=== PATIENT | female | born 1945 | race Caucasian/White ===

== ENCOUNTER 2017-08-20 06:58 | Day surgery (SDC) | payer MEDICARE ==
[~2017-08-20] VITALS: Ht 152.4 cm; Wt 77.1 kg
[~2017-08-20 06:58] MED LIST: Coreg12.5 MG PO; FURO20 PO; HYDCHL25 PO; LOSARTAN POTASS50 MG PO; LOVA40 PO; METO100ER PO; METO50ER PO; Multivitamin1 EAC1 PO; POTA8 PO; Prilosec Otc20 MG PO
[2017-09-21] MEDS ORDERED: Diltiazem ER240 M1 PO (02:05)
[2017-09-21] MEDS ORDERED: POTCHL20ER PO (03:56)
[2018-05-06] MEDS ORDERED: VERA240ER (14:06)
[2018-05-06] MEDS ORDERED: XARELTO20 MG (14:06)
[2018-05-06] MEDS ORDERED: POTA8 (14:07)
[2018-05-06] MEDS ORDERED: METO100ER (14:07)
[2018-05-06] MEDS ORDERED: B-121000 MC2 (14:07)
[2018-05-06] MEDS ORDERED: Hair, Skin & N1 EACH (14:07)
[2018-05-06] MEDS ORDERED: Mobic15 MG (14:08)
== END 2017-08-20 23:00 | disposition home or self-care (01) ==
LOC: ORSCMMR 06:58
PROVIDERS: Internal Medicine Gastroenterology
PROC: 0DB48ZX Excision of Esophagogastric Junction, Via Natural or Artificial Opening Endoscopic, Diagnostic (ICD-10-PCS; principal; 2017-08-20 08:00)
PROC: 0DB58ZX Excision of Esophagus, Via Natural or Artificial Opening Endoscopic, Diagnostic (ICD-10-PCS; principal; 2017-08-20 08:00)
PROC: 0D758ZZ Dilation of Esophagus, Via Natural or Artificial Opening Endoscopic (ICD-10-PCS; principal; 2017-08-20 08:00)
PROC: 0DB68ZX Excision of Stomach, Via Natural or Artificial Opening Endoscopic, Diagnostic (ICD-10-PCS; principal; 2017-08-20 08:00)
PROC: 0DBH8ZX Excision of Cecum, Via Natural or Artificial Opening Endoscopic, Diagnostic (ICD-10-PCS; principal; 2017-08-20 08:00)
PROC: 0DBK8ZX Excision of Ascending Colon, Via Natural or Artificial Opening Endoscopic, Diagnostic (ICD-10-PCS; principal; 2017-08-20 08:00)
DX: R13.14 Dysphagia, pharyngoesophageal phase (principal); K21.9 Gastro-esophageal reflux disease without esophagitis; K29.70 Gastritis, unspecified, without bleeding; Z12.11 Encounter for screening for malignant neoplasm of colon; D12.0 Benign neoplasm of cecum; D12.2 Benign neoplasm of ascending colon; K57.30 Diverticulosis of large intestine without perforation or abscess without bleeding; Z86.010 Personal history of colon polyps; Z80.0 Family history of malignant neoplasm of digestive organs; G47.33 Obstructive sleep apnea (adult) (pediatric); Z79.899 Other long term (current) drug therapy
CPT/HCPCS: 88305; 88341; 88342; C1726; J2250; J3010; J7120

== ENCOUNTER → 2019-10-14 | Outpatient (CLI) | payer MEDICARE ==
[~2019-10-14] MED LIST changes: +B-121000 MC2; +Diltiazem ER240 M1 PO; +Hair, Skin & N1 EACH; +METO100ER; +Mobic15 MG; +POTA8; +POTCHL20ER PO; +VERA240ER; +XARELTO20 MG
[2019-10-15 12:28] LABS: Stool Occult Bld Immuno 1 Negative (NEGATIVE)
== END | disposition home or self-care (01) ==
LOC: LAB EV 09:00
PROVIDERS: Internal Medicine Gastroenterology
DX: R19.4 Change in bowel habit (principal)
CPT/HCPCS: G0328

== ENCOUNTER → 2019-11-04 | Outpatient (CLI) | payer MEDICARE | END | disposition home or self-care (01) | LOC: LAB EV 09:35 | DX: R19.4 Change in bowel habit (principal) | CPT/HCPCS: 83993 ==

== ENCOUNTER → 2019-11-10 | Outpatient (CLI) | payer MEDICARE | END | disposition home or self-care (01) | LOC: LAB SRC 09:25 → LAB SHORT 09:25 → LAB FUT 10-06 16:20 | DX: R19.4 Change in bowel habit (principal) | CPT/HCPCS: 83993 ==

== ENCOUNTER 2020-07-26 12:44 | Day surgery (SDC) | payer MEDICARE ==
[~2020-07-26] VITALS: Ht 152.4 cm; Wt 77.8 kg
[~2020-07-26 12:44] MED LIST changes: +CARV25 PO; +FERSU300 PO; -METO100ER; +OMEP20ER PO; +VERA240ER PO; +XARELTO20 MG PO
[2020-07-26] MEDS ORDERED: DOCUZEN 8.6-501 EACH PO (13:20)
--- NOTE | 2020-07-26 14:32 | NUR ---
07/26/20 1432 Bambi Burris BUPIVACAINE 0.5% 30ML MIXED WITH EPI 0.15MG TO CONSTITUTE BUPIVACAINE 0.5% W/EPI 1:200,[address] A[address]BE[address] WHARTON INJECTED 30 ML DURING THE CASE
--- NOTE | 2020-07-26 15:15 | NUR ---
07/26/20 1515 GIGI PALAFOX PT TO STEP DOWN. PT REPORTS "DEEP ACHE" BUT CONTINUES TO DENY NEED FOR NARCOTIC PAIN MEDICATION. SHE REPORTS IT IS TOLERABLE. DENIES NAUSEA AND IS TOLERATING SIPS OF JUICE AND CRACKERS. IV PATENT. VSS ON ROOM AIR. PT IS ONE PERSON ASSIST TO RECLINER AND BOOT IN PLACE. DRESSING IS C/D/I
== END 2020-07-26 16:00 | disposition home or self-care (01) ==
LOC: ORSCSDS 12:44
PROVIDERS: Podiatrist Foot & Ankle Surgery
PROC: 0YPB0YZ Removal of Other Device from Left Lower Extremity, Open Approach (ICD-10-PCS; principal; 2020-07-26 14:00)
DX: M79.672 Pain in left foot (principal); T84.84XA Pain due to internal orthopedic prosthetic devices, implants and grafts, initial encounter; M19.072 Primary osteoarthritis, left ankle and foot; I48.91 Unspecified atrial fibrillation; Z79.01 Long term (current) use of anticoagulants; Z79.899 Other long term (current) drug therapy; E78.5 Hyperlipidemia, unspecified
CPT/HCPCS: A9270; J0171; J1100; J2405; J2704; J3010; J3370; J7120

== ENCOUNTER 2020-09-02 18:30 | Emergency (ER) | payer MEDICARE ==
[~2020-09-02] VITALS: Ht 152.4 cm; Wt 78.5 kg
[~2020-09-02 18:30] MED LIST changes: +DOCUZEN 8.6-501 EACH PO
== END 2020-09-02 20:50 | disposition home or self-care (01) ==
LOC: ER 18:30
DX: S06.0X0A Concussion without loss of consciousness, initial encounter (principal); M54.2 Cervicalgia; Z88.2 Allergy status to sulfonamides; Z88.0 Allergy status to penicillin; Z88.8 Allergy status to other drugs, medicaments and biological substances; Z79.01 Long term (current) use of anticoagulants; Z79.899 Other long term (current) drug therapy; W01.198A Fall on same level from slipping, tripping and stumbling with subsequent striking against other object, initial encounter
CPT/HCPCS: 70450; 72125; 99283-25

== ENCOUNTER 2022-04-26 07:59 | Day surgery (SDC) | payer MEDICARE | END 2022-04-26 10:12 | disposition home or self-care (01) | DX: R13.10 Dysphagia, unspecified (principal); K59.09 Other constipation; K21.9 Gastro-esophageal reflux disease without esophagitis; I48.91 Unspecified atrial fibrillation; I10 Essential (primary) hypertension; G47.33 Obstructive sleep apnea (adult) (pediatric); I47.9 Paroxysmal tachycardia, unspecified; J45.909 Unspecified asthma, uncomplicated; Z86.73 Personal history of transient ischemic attack (TIA), and cerebral infarction without residual deficits; E66.9 Obesity, unspecified; Z68.31 Body mass index [BMI] 31.0-31.9, adult; Z79.899 Other long term (current) drug therapy; Z79.01 Long term (current) use of anticoagulants ==

== ENCOUNTER 2023-05-22 07:33 | Day surgery (SDC) | payer MEDICARE ==
[2023-05-22] VITALS (18 sets, daily range): BP systolic 93–188; BP diastolic 59–81
[~2023-05-22] VITALS: Ht 152.4 cm; Wt 76.8 kg
[~2023-05-22 07:33] MED LIST changes: +AMIODARONE HCL200 MG PO; +IBUP800 PO; +Ketoconazole120 ML TOP; +Verapamil ER100 MG PO
[2023-05-22] MEDS ORDERED: EUTHYROX50 MCG PO (08:19)
--- NOTE | 2023-05-22 08:55 | NUR ---
Ambulatory in Day Surgery History, Chart, Medications and Allergies reviewed before start of procedure. Pre-Op teaching done. Pt verbalizes understanding.
--- NOTE | 2023-05-22 14:56 | NUR ---
PT ARRIVED TO THE ROOM AT 1532. PT DENIES PAIN. SHE IS ABLE TO MOVE ALL EXTREMITIES. SHE IS ALERT AND ORIENTED. SPINAL SITE WNL. PT STILL HAS DECREASED SENSATION AND MOVEMENT TO BLE. AQUACEL TO L KNEE IS C/D/I. JUANIS WRAP AND POLAR PACK IN PLACE. CALL LIGHT WITHIN REACH, PT EDUCATED TO USE.
--- NOTE | 2023-05-22 18:43 | NUR ---
SHIFT SUMMARY PT IS POD#0 FROM L TKA WITH DR. PADILLA. PT HAS TOLERATED PO, PAIN MANAGED WITH TYLENOL AND TORADOL, SHE HAS VOIDED AND WORKED WITH THERAPY. PT IS A 1 ASSIST WHEN OOB. PT REPORTED SOME DIZZINESS DURING DINNER WHEN RESTING WITH HER FEET ON THE FLOOR, PT REPORTS DIZZINESS RESOLVED WITHOUT INTERVENTION. PT IS WILSON SINCE SHE IS TOLERATING PO. PT MOVING ALL EXTREMITIES WELL. VSS. PT IS NOW ALERT AND RESTING IN BED, CALL LIGHT WITHIN REACH.
--- NOTE | 2023-05-22 19:09 | NUR ---
BEDSIDE REPORT GIVEN TO NOC RN; PT PARTICIPATED WITH BEDSIDE REPORT. PT ALERT, ORIENTED AND RESTING IN BED, CALL LIGHT WITHIN REACH.
[2023-05-23 04:41] VITALS: BP 153/71
--- NOTE | 2023-05-23 04:56 | NUR ---
SHIFT SUMMARY POD 1 L TKA PT SLEPT T/O NIGHT. PAIN MANGED PER EMAR. DRESSING TO L KNEE C/D/I. TOLERTING PO INTAKE. UP TOT THE BATHROOM, VOIDING. DENIES N/T. NO OTHER CONCERNS AT THIS TIME. CALL LIGHT WITHIN REACH
[2023-05-23 05:48] LABS: BASOPHILS ABSOLUTE AUTO 0.06 K/mm3 (0.00-0.23); BASOPHILS PERCENT AUTO 1 % (0-2); Bun/Creatinine Ratio 21.2 (12.0-20.0); Calcium, Blood 8.2 mg/dL (8.5-10.1); Creatinine, Blood 0.85 mg/dL (0.40-1.00); EOSINOPHILS ABSOLUTE AUTO 0.14 K/mm3 (0.00-0.68); EOSINOPHILS PERCENT AUTO 2 % (0-6); Hematocrit 32.1 % (33.0-51.0); Hemoglobin 10.7 g/dL (11.5-16.0); IMMATURE GRAN ABSOLUTE AUTO 0.08 K/mm3 (0.00-0.10); IMMATURE GRAN PERCENT AUTO 1 % (0-1); LYMPHOCYTES ABSOLUTE AUTO 1.82 K/mm3 (0.84-5.20); LYMPHOCYTES PERCENT AUTO 20 % (21-46); MONOCYTES ABSOLUTE AUTO 0.73 K/mm3 (0.16-1.47); MONOCYTES PERCENT AUTO 8 % (4-13); Mean Corpuscular HGB 32.4 pg (26.0-34.0); Mean Corpuscular HGB Conc 33.3 g/dL (31.5-36.5); Mean Corpuscular Volume 97 fL (80-100); NEUTROPHILS ABSOLUTE AUTO 6.19 K/mm3 (1.96-9.15); NEUTROPHILS PERCENT AUTO 69 % (41-73); Platelet Count 201 K/mm3 (150-400); Potassium, Blood 3.5 mmol/L (3.5-5.5); RDW Standard Deviation 46.5 fL (35.1-46.3); White Blood Cell Count 9.02 K/mm3 (4.00-11.30)
[2023-05-23 07:11] VITALS: BP 164/74
[2023-05-23] MEDS ORDERED: ASPI81CH PO (07:59)
[2023-05-23] MEDS ORDERED: TRAM50 PO (08:03)
--- NOTE | 2023-05-23 11:20 | NUR ---
Pt is awake and sitting in a recliner. Pt. is unsettled by having some light headedness during her PT. Listen with empathy and a calming presence. Facilitate a life review and in the process rapport is established. Pt.displays evidence of engagement, awareness and trust, Prayed with Pt. Pt. verbalized gratitude for the spiritual care visit.
[2023-05-23] MEDS ORDERED: Acetaminophen650 M1 PO (11:33)
[2023-05-23 15:08] VITALS: BP 160/64
--- NOTE | 2023-05-23 15:16 | NUR ---
DISCHARGE NOTE: PATIENT WAS EDUCATED ON DISCHARGE INSTRUCTIONS. SHE VERBALIZED UNDERSTANDING OF INSTRUCTIONS AND HAD NO FURTHER QUESTIONS AT THIS TIME. HARD PERSCRIPTION WAS PLACED IN DISCHARGE INSTRUCTIONS FOLDER WITH EXTRA AQUACELS. PAIN IS MANAGED WITH PO PAIN MEDS. HER LEFT KNEE HAS AN AQUACEL THAT IS C/D/I. DENIES NUMBNESS OR TINGLING IN ALL EXTREMITIES. SHE IS A SBA WITH FWW AND GAIT BELT. PATIENT IS DRESSED AND HAS PERSONAL ITEMS IN THE ROOM GATHERED. PATIENT IS SITTING IN HER RECLINER WAITING FOR HER TO COME PICK HER UP TO TAKE HER HOME. IV WAS TAKEN OUT AND WNL.
--- NOTE | 2023-05-23 16:00 | NUR ---
PATIENT WAS WHEELCHAIRED OUT TO HUSBANDS CAR TO BE TAKEN HOME.
== END 2023-05-23 16:01 | disposition home or self-care (01) ==
LOC: ORSCMMR 07:33 → ORD 09:15 → SURS 14:21 → ORSCMMR 05-23 16:01
PROVIDERS: Orthopaedic Surgery
PROC: 0SRD0JA Replacement of Left Knee Joint with Synthetic Substitute, Uncemented, Open Approach (ICD-10-PCS; principal; 2023-05-22 11:30)
DX: M17.12 Unilateral primary osteoarthritis, left knee (principal); I10 Essential (primary) hypertension; I48.91 Unspecified atrial fibrillation; Z79.01 Long term (current) use of anticoagulants; E78.5 Hyperlipidemia, unspecified; Z86.73 Personal history of transient ischemic attack (TIA), and cerebral infarction without residual deficits; Z79.899 Other long term (current) drug therapy; G47.33 Obstructive sleep apnea (adult) (pediatric)
CPT/HCPCS: 36415; 73560-LT; 80048; 85025; 97110; 97116; 97161; 97530; A9270; C1713; C1776; J0171; J0690; J0735; J1885; J2795; J7120

== ENCOUNTER 2024-02-18 11:52 | Emergency (ER) | payer MEDICARE ==
[~2024-02-18] VITALS: Ht 152.4 cm; Wt 72.6 kg
[~2024-02-18 11:52] MED LIST changes: +ASPI81CH PO; +Acetaminophen650 M1 PO; +EUTHYROX50 MCG PO; +TRAM50 PO
[2024-02-18 13:05] LABS: BASOPHILS ABSOLUTE AUTO 0.08 K/mm3 (0.00-0.23); BASOPHILS PERCENT AUTO 1 % (0-2); EOSINOPHILS PERCENT AUTO 3 % (0-6); Hematocrit 39.2 % (33.0-51.0); Hemoglobin 13.1 g/dL (11.5-16.0); IMMATURE GRAN ABSOLUTE AUTO 0.02 K/mm3 (0.00-0.10); IMMATURE GRAN PERCENT AUTO 0 % (0-1); LYMPHOCYTES ABSOLUTE AUTO 2.44 K/mm3 (0.84-5.20); LYMPHOCYTES PERCENT AUTO 31 % (21-46); MONOCYTES ABSOLUTE AUTO 0.68 K/mm3 (0.16-1.47); MONOCYTES PERCENT AUTO 9 % (4-13); Mean Corpuscular HGB 32.2 pg (26.0-34.0); Mean Corpuscular HGB Conc 33.4 g/dL (31.5-36.5); Mean Corpuscular Volume 96 fL (80-100); Mean Platelet Volume 9.5 fL (9.1-12.4); NEUTROPHILS ABSOLUTE AUTO 4.57 K/mm3 (1.96-9.15); NEUTROPHILS PERCENT AUTO 57 % (41-73); Platelet Count 338 K/mm3 (150-400); RDW Coefficient Variation 13.4 % (11.7-14.2); RDW Standard Deviation 47.7 fL (35.1-46.3); Red Blood Cell Count 4.07 M/mm3 (3.80-5.20); White Blood Cell Count 7.99 K/mm3 (4.00-11.30)
[2024-02-18 13:28] LABS: Bun/Creatinine Ratio 13.1 (12.0-20.0); Calcium, Blood 9.3 mg/dL (8.5-10.1); Creatinine, Blood 1.07 mg/dL (0.40-1.00); Potassium, Blood 3.2 mmol/L (3.5-5.5)
[2024-02-18] MEDS ORDERED: Lactated Ringer's 1,000 ML IV ONE (17:55)
[2024-02-18 18:34] LABS: Magnesium, Blood 2.4 mg/dL (1.6-2.4)
[2024-02-18] MEDS ORDERED: Ketorolac Tromethamine 15mg Vial IV ONE (19:35)
[2024-02-18] MEDS ORDERED: Labetalol HCL 5 MG/ML 4ML Injection (Single Dose) IV ONE (19:35)
[2024-02-18 20:39] LABS: Source, Urine Clean Catch
[2024-02-18 20:43] LABS: Bilirubin, Urine Neg (Neg); Blood, Urine Neg (Neg); Glucose Qualitative, Urine 4+ (Neg); Ketones, Urine 3+ (Neg); Leukocyte Esterase, Urine 1+ (Neg); Nitrite, Urine Neg (Neg); Protein, Urine Neg (Neg); Urobilinogen, Urine NORM (Normal)
[2024-02-18 20:49] LABS: Appearance, Urine Clear (Clear); Color, Urine Yellow (P-Yellow)
[2024-02-18 20:50] LABS: Bacteria Rare /hpf; Red Blood Cells, Urine Not Seen /hpf (0-2); Squamous Epithelial Cells Few /hpf (Few); White Blood Cells, Urine 0-2 /hpf (0-5)
[2024-02-18] MEDS ORDERED: MIRALAX1714 PO (21:09)
[2024-02-18 21:36] VITALS: BP 167/78
== END 2024-02-18 21:41 | disposition home or self-care (01) ==
LOC: ER 11:52
PROVIDERS: Emergency Medicine; Student in an Organized Health Care Education/Training Program
DX: K59.00 Constipation, unspecified (principal); R91.1 Solitary pulmonary nodule; I16.0 Hypertensive urgency; I10 Essential (primary) hypertension; R10.84 Generalized abdominal pain; Z79.82 Long term (current) use of aspirin; Z79.899 Other long term (current) drug therapy; Z88.0 Allergy status to penicillin; Z88.2 Allergy status to sulfonamides
CPT/HCPCS: 71250; 74018; 74177; 80048; 81001; 83690; 83735; 85025; 96361; 96374-59; 96375; 99284-25; J1885; J7120; Q9967

== ENCOUNTER 2024-11-04 21:12 | Emergency (ER) | payer MEDICARE ==
[~2024-11-04] VITALS: Ht 160 cm; Wt 72.6 kg
[~2024-11-04 21:12] MED LIST changes: +MIRALAX1714 PO
[2024-11-04 22:26] LABS: BASOPHILS ABSOLUTE AUTO 0.07 K/mm3 (0.00-0.23); BASOPHILS PERCENT AUTO 1 % (0-2); EOSINOPHILS ABSOLUTE AUTO 0.21 K/mm3 (0.00-0.68); EOSINOPHILS PERCENT AUTO 2 % (0-6); Hematocrit 37.6 % (33.0-51.0); Hemoglobin 12.3 g/dL (11.5-16.0); IMMATURE GRAN ABSOLUTE AUTO 0.02 K/mm3 (0.00-0.10); IMMATURE GRAN PERCENT AUTO 0 % (0-1); LYMPHOCYTES ABSOLUTE AUTO 2.62 K/mm3 (0.84-5.20); LYMPHOCYTES PERCENT AUTO 30 % (21-46); MONOCYTES ABSOLUTE AUTO 0.78 K/mm3 (0.16-1.47); MONOCYTES PERCENT AUTO 9 % (4-13); Mean Corpuscular HGB 32.6 pg (26.0-34.0); Mean Corpuscular HGB Conc 32.7 g/dL (31.5-36.5); Mean Corpuscular Volume 100 fL (80-100); Mean Platelet Volume 10.1 fL (9.1-12.4); NEUTROPHILS ABSOLUTE AUTO 4.93 K/mm3 (1.96-9.15); NEUTROPHILS PERCENT AUTO 57 % (41-73); Platelet Count 256 K/mm3 (150-400); RDW Coefficient Variation 12.9 % (11.7-14.2); RDW Standard Deviation 47.4 fL (35.1-46.3); Red Blood Cell Count 3.77 M/mm3 (3.80-5.20); White Blood Cell Count 8.63 K/mm3 (4.00-11.30)
[2024-11-04 22:51] LABS: Albumin, Blood 3.8 g/dL (3.4-5.0); Albumin/Globulin Ratio 1.1 (0.8-1.8); Bilirubin, Total 0.3 mg/dL (0.1-1.0); Bun/Creatinine Ratio 12.5 (12.0-20.0); Calcium, Blood 8.3 mg/dL (8.5-10.1); Creatinine, Blood 1.12 mg/dL (0.40-1.00); Globulin, Blood 3.4 g/dL (2.2-4.0); Total Protein, Blood 7.2 g/dL (6.4-8.2)
[2024-11-05 00:19] VITALS: BP 184/87
== END 2024-11-05 00:25 | disposition home or self-care (01) ==
LOC: ER 21:12
PROVIDERS: Student in an Organized Health Care Education/Training Program
DX: I10 Essential (primary) hypertension (principal); I48.91 Unspecified atrial fibrillation; E78.00 Pure hypercholesterolemia, unspecified; Z88.0 Allergy status to penicillin; Z88.2 Allergy status to sulfonamides; Z88.8 Allergy status to other drugs, medicaments and biological substances; Z79.890 Hormone replacement therapy; Z79.899 Other long term (current) drug therapy
CPT/HCPCS: 71046; 80053; 84484; 85025; 93005; 93010; 99284-25

== ENCOUNTER 2024-11-25 19:46 | Inpatient (IN) | payer MEDICARE ==
[~2024-11-25] VITALS: Ht 172.7 cm; Wt 74.1 kg
[2024-11-25 19:58] LABS: BASOPHILS ABSOLUTE AUTO 0.08 K/mm3 (0.00-0.23); BASOPHILS PERCENT AUTO 1 % (0-2); EOSINOPHILS ABSOLUTE AUTO 0.20 K/mm3 (0.00-0.68); EOSINOPHILS PERCENT AUTO 2 % (0-6); Hematocrit 37.2 % (33.0-51.0); Hemoglobin 12.7 g/dL (11.5-16.0); IMMATURE GRAN ABSOLUTE AUTO 0.02 K/mm3 (0.00-0.10); IMMATURE GRAN PERCENT AUTO 0 % (0-1); LYMPHOCYTES ABSOLUTE AUTO 5.59 K/mm3 (0.84-5.20); LYMPHOCYTES PERCENT AUTO 50 % (21-46); MONOCYTES ABSOLUTE AUTO 0.80 K/mm3 (0.16-1.47); MONOCYTES PERCENT AUTO 7 % (4-13); Mean Corpuscular HGB Conc 34.1 g/dL (31.5-36.5); Mean Corpuscular Volume 97 fL (80-100); NEUTROPHILS ABSOLUTE AUTO 4.54 K/mm3 (1.96-9.15); NEUTROPHILS PERCENT AUTO 40 % (41-73); NRBC ABSOLUTE 0.00 K/mm3 (0.00-0.02); NRBC Auto 0.0 /100 WBC (0.0-0.2); Platelet Count 293 K/mm3 (150-400); RDW Coefficient Variation 12.9 % (11.7-14.2); RDW Standard Deviation 45.8 fL (35.1-46.3)
[2024-11-25 20:19] LABS: Ethanol (Alcohol), Blood, Med <3 mg/dL
[2024-11-25 20:20] LABS: Alanine Aminotransfer (ALT/SGP 34 U/L (12-78); Albumin, Blood 3.8 g/dL (3.4-5.0); Albumin/Globulin Ratio 1.1 (0.8-1.8); Anion Gap 8 mmol/L (3-11); Aspartate Aminotrans (AST/SGOT 23 U/L (12-37); Bilirubin, Total 0.3 mg/dL (0.1-1.0); Blood Urea Nitrogen 15 mg/dL (8-24); CO2, Blood 25 mmol/L (21-32); Calcium, Blood 8.5 mg/dL (8.5-10.1); Chloride, Blood 109 mmol/L (98-108); Creatinine, Blood 1.37 mg/dL (0.40-1.00); Globulin, Blood 3.5 g/dL (2.2-4.0); Glucose, Blood 136 mg/dL (70-99); Potassium, Blood 3.4 mmol/L (3.5-5.5); Sodium, Blood 139 mmol/L (136-145); Total Protein, Blood 7.3 g/dL (6.4-8.2)
[2024-11-25 20:47] LABS: Magnesium, Blood 2.1 mg/dL (1.6-2.4); Salicylate <1.7 mg/dL (2.8-20.0)
[2024-11-25 20:55] LABS: D-Dimer, Quantitative <0.19 mg/L FEU (0.00-0.52); Prothrombin Time Results 16.2 Sec (9.7-11.5)
[2024-11-25 21:11] LABS: pH Blood Venous 7.41 (7.34-7.37)
[2024-11-25 21:13] LABS: Phosphorus, Blood 2.8 mg/dL (2.5-4.9)
[2024-11-25 21:14] LABS: Acetaminophen, Random <2.0 ug/mL (10.0-30.0)
[2024-11-25] MEDS ORDERED: Potassium Chl 20MEQ/Water100ML 100 ML IV SCH (22:05)
[2024-11-25] MEDS ORDERED: NS 1,000 ML IV SCH (22:05)
[2024-11-25] MEDS ORDERED: Ondansetron HCl 2 MG / ML 2ML Vial IV PRN (23:30)
[2024-11-26] MEDS ORDERED: JARDIANCE10 MG PO (00:04)
[2024-11-26] MEDS ORDERED: LEVSOD25 PO (00:05)
[2024-11-26] MEDS ORDERED: AMIODARONE HCL100 M3 PO (00:05)
[2024-11-26 00:43] VITALS: BP 186/85
[2024-11-26 04:13] VITALS: BP 164/66
--- NOTE | 2024-11-26 04:40 | NUR ---
SHIFT SUMMARY 78 YR F ADMITTED ON 11/25/24. FULL CODE. PT STATES THAT HER SYMPTOMS ARE GETTING BETTER AND SHE IS ABLE TO SPEAK AFTER NOT BEING ABLE TO FOR SEVERAL HOURS. HER SPEECH IS SOFT AND SHE IS HAVING SOME TROUBLE FINDING HER WORDS. SHE STATES HER RIGHT LEG STILL WILL NOT WORK AND SHE IS NOT ABLE TO WALK. SHE IS A&O X 4 AND IS ABLE TO MAKE HER NEEDS KNOWN. PLAN IS FOR AN MRI IN THE A.M. BED IS IN LOW POSITION WITH ALARM ON FOR SAFETY, AND CALL LIGHT IS IN REACH. SHE HAS A PUREWIK IN PLACE THAT IS WORKING WELL FOR HER.
[2024-11-26 06:03] LABS: BASOPHILS ABSOLUTE AUTO 0.05 K/mm3 (0.00-0.23); BASOPHILS PERCENT AUTO 1 % (0-2); EOSINOPHILS ABSOLUTE AUTO 0.08 K/mm3 (0.00-0.68); EOSINOPHILS PERCENT AUTO 1 % (0-6); Hematocrit 35.5 % (33.0-51.0); Hemoglobin 11.7 g/dL (11.5-16.0); IMMATURE GRAN ABSOLUTE AUTO 0.02 K/mm3 (0.00-0.10); IMMATURE GRAN PERCENT AUTO 0 % (0-1); LYMPHOCYTES ABSOLUTE AUTO 2.26 K/mm3 (0.84-5.20); LYMPHOCYTES PERCENT AUTO 26 % (21-46); MONOCYTES ABSOLUTE AUTO 0.69 K/mm3 (0.16-1.47); MONOCYTES PERCENT AUTO 8 % (4-13); Mean Corpuscular HGB Conc 33.0 g/dL (31.5-36.5); Mean Corpuscular Volume 99 fL (80-100); NEUTROPHILS ABSOLUTE AUTO 5.59 K/mm3 (1.96-9.15); NEUTROPHILS PERCENT AUTO 64 % (41-73); NRBC ABSOLUTE 0.00 K/mm3 (0.00-0.02); NRBC Auto 0.0 /100 WBC (0.0-0.2); Platelet Count 221 K/mm3 (150-400); RDW Coefficient Variation 13.0 % (11.7-14.2); RDW Standard Deviation 47.3 fL (35.1-46.3)
[2024-11-26 06:36] LABS: LDL/HDL RATIO 1.3; Magnesium, Blood 2.4 mg/dL (1.6-2.4); Thyroid Stimulating Hormone 5.180 uIU/mL (0.360-4.800)
[2024-11-26 06:37] LABS: Alanine Aminotransfer (ALT/SGP 29 U/L (12-78); Albumin, Blood 3.4 g/dL (3.4-5.0); Albumin/Globulin Ratio 1.1 (0.8-1.8); Anion Gap 6 mmol/L (3-11); Aspartate Aminotrans (AST/SGOT 20 U/L (12-37); Bilirubin, Total 0.2 mg/dL (0.1-1.0); Blood Urea Nitrogen 14 mg/dL (8-24); CHOL/HDL RATIO 2.6; CO2, Blood 27 mmol/L (21-32); Calcium, Blood 8.3 mg/dL (8.5-10.1); Chloride, Blood 112 mmol/L (98-108); Cholesterol 169 mg/dL (50-200); Creatinine, Blood 1.00 mg/dL (0.40-1.00); Globulin, Blood 3.1 g/dL (2.2-4.0); Glucose, Blood 93 mg/dL (70-99); HDL Cholesterol 65 mg/dL (>39); Low Density Lipoprotein Chol 85 mg/dL (0-110); Potassium, Blood 4.0 mmol/L (3.5-5.5); Sodium, Blood 141 mmol/L (136-145); Total Protein, Blood 6.5 g/dL (6.4-8.2); Triglycerides 93 mg/dL (30-160); Very Low Density Lipoprot Chol 18 mg/dL (6-32)
[2024-11-26 08:14] VITALS: BP 165/77
[2024-11-26 11:31] VITALS: BP 189/83
[2024-11-26 16:22] VITALS: BP 190/98
--- NOTE | 2024-11-26 17:25 | NUR ---
SHIFT SUMMARY PT A&OX4, BEDRIDDEN AT THIS TIME, TOLERATING PO, AND DENIED PAIN. 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 DISCUSSED RESULTS W/ PT AND PT'S FAMILY. PT HYPERTENSIVE, BUT ASYMPTOMATIC, PROVIDER AWARE AND HYPERTENSION PERMISSIVE AT THIS TIME. PT RETAINING URINE THIS SHIFT. THIS RN NOTIFIED PROVIDER. ROWLAND TO BE PLACED IF ONE MORE BLADDER SCAN IS INDICATIVE. PHYSICAL AND OCCUPATIONAL THERAPY ATTEMPTED TO SEE PT, THERAPIES AWAITING BP MANAGEMENT FOR EVAL. CALL LIGHT WITHIN REACH.
[2024-11-26 19:48] VITALS: BP 179/88
[2024-11-27 00:17] VITALS: BP 143/73
[2024-11-27 04:25] VITALS: BP 146/73
--- NOTE | 2024-11-27 05:32 | NUR ---
SHIFT SUMMARY A&Ox4, HYPERTENSIVE, OTHER VSS ON RA. PT REPORTS 01/11 HEADACHE, PRN TYLENOL EFFECTIVE. WEAKNESS AT RUE AND RLE CONTINUE. PRN LASIX GIVEN FOR BLE SWELLING. MONITORED FOR URINARY RETENTION, 600 ML OUTPUT OVERNIGHT.
[2024-11-27 07:10] VITALS: BP 149/80
--- NOTE | 2024-11-27 09:00 | NUR ---
pt laying in bed, awake a/ox4, pleasant and cooperative with care, follows commands well, denies pain this am, states her speech is much improved from yesterday, is completing full sentances, right arm is weak can lift arm but fine motors skills are weak, right leg is no flacid, but is unable to push down or up, lungs are clear and patent, btx4, abd flat soft nontender, voids via purwick at this time, lungs are clear t/o, reps even and unlabored, no cough noted, hrr, no edema noted, ppp+1, cap refill<3 sec, vs stable, afebrile, piv to lac site is clear and patent, btx4, abd flat soft notnender, skin c/w/d, lottie, call light in reach.
[2024-11-27 11:16] VITALS: BP 160/73
--- NOTE | 2024-11-27 13:30 | NUR ---
Upon receiving a referral for spiritual care, I visited the patient. She is tearful as she explains about her medical events, the initial effects and the improvements she has made so far. She has concerns about getting the rehab that she needs due to financail restraints their fixed income and low insurance coverage. She also talks about her family and her strong Anglican maranda. She attends [employer] and appreciates the prayers, visits and support. I lsitened empathically, reinforced helpful attitudes and practices and provided a calming presence and prayer. The patient responded well and showed signs of greater peace and hope for her future. I will continue to remain available to patient and family.
[2024-11-27 15:43] VITALS: BP 161/88
--- NOTE | 2024-11-27 18:31 | NUR ---
pt had an uneventful day, up to chair with therapy and to bsc onced with this nurse, had a bm, complained of a h/a this evening, tylenol given. states headach is better. no further changes or needs, call light in reach.
[2024-11-27 20:10] VITALS: BP 135/69
[2024-11-28] VITALS (7 sets, daily range): BP systolic 134–166; BP diastolic 63–96
--- NOTE | 2024-11-28 05:56 | NUR ---
SHIFT SUMMARY A&Ox4, VSS ON RA. Q4 NEURO CHECKS COMPLETED. PT REPORTS INCREASED MOBILITY AT R SIDE. GENTLE DORSI/VENTRAL FLEXION PRESENT AT R FOOT. RLE CAN OVERCOME GRAVITY. RUE RANGE OF MOTION INCREASED.
--- NOTE | 2024-11-28 18:25 | NUR ---
PT PLEASNT TODAY. DID NOT SEE FAMILY IN TODAY. PT AMBULATED 1 MIN ASST TO BATHROOM AND ALSO TOOK SHOWER TODAY. FOOD DROP NOTED WHILE WALKING. BARELY ABLE TO AVIONICS SAFETY INSPECTOR FOOT TO WALK, PT IS DETERMINEED TO CONTINUE TO WALK AND HOPES FOR GOOD IMPROVEMENT. AGREES THAT THERAPY SHOULD HELP. NO FACIAL DROOP NOTED. HANDS MEDIUM STRENGTH, BUT EQUAL. ABLE TO MOVE TOES ON RT FOOT SOME. LEFT MUCH STRONGER THAN RT. NO OTHER CONCERNS NOTED. BED IN LOW POSITION, CALL LITE IN REACH, CALLS APPROP
[2024-11-29] VITALS (7 sets, daily range): BP systolic 104–169; BP diastolic 63–91
--- NOTE | 2024-11-29 06:31 | NUR ---
SHIFT SUMMARY PT A&Ox4, VSS ON RA. NO ACUTE CHANGES OVERNIGHT. PT REPORTS FATIGUE "I OVER DID IT TODAY". PRN TYLENOL GIVEN FOR 6/10 GENERALIZED PAIN. WEAKNESS AT R ANKLE AND FOOT CONTINUES, WEAK DORSI/VENTRAL FLEXION. DIMINISHED SENSATION AT R FOOT RELATIVE TO L. PT ENGAGED AND EAGER TO REGAIN STRENGTH; INDEPENDENTLY PERFORMING ROM EXERCISES.
--- NOTE | 2024-11-29 17:38 | NUR ---
SHIFT SUMMARY PATIENT A/OX4, ABLE TO MAKE NEEDS KNOWN. PLEASANT AND COOPERATIVE WITH CARE. PARTICIPATED IN PHYSICAL THERAPY TODAY. ABLE TO GET UP TO RECLINER FOR BREAKFAST AND DINNER. TELEMETRY IN PLACE, NO EVENTS NOTED THIS SHIFT HOWEVER DURING THE NIGHT PATIENT CONVERTED TO AFIB TO SINUS MULTIPLE TIMES PER ORTHOPEDIC NURSE PRACTITIONER. Q 4 NEURO CHECKS. PLAN TO DISCHARGE TO SKILLED FACILTIY. CAME TO BEDSIDE THIS AFTERNOON. NO OTHER CONCERNS AT THIS TIME.
[2024-11-30 04:20] VITALS: BP 144/81
--- NOTE | 2024-11-30 06:50 | NUR ---
SHIFT SUMMARY PT SLEPT INTERMITTENTLY DURING THE NIGHT. RIGHT SIDED WEAKNESS CONTINUES. PT OOB TO BSC BEFORE HS, BUT USING PUREWICK AT NIGHT. PT ABLE TO REPOSITION SELF IN BED. MEDICATED X1 FOR HEARTBURN PER EMAR. BED IN LOWEST POSITION, CALL LIGHT WITHIN REACH, SIDERAILS UP X3.
[2024-11-30 08:00] VITALS: BP 151/82
[2024-11-30 14:15] VITALS: BP 180/82
[2024-11-30 16:01] VITALS: BP 173/95
[2024-11-30 18:12] VITALS: BP 180/95
--- NOTE | 2024-11-30 18:42 | NUR ---
SHIFT SUMMARY PATIENT A/OX4, ABLE TO MAKE NEEDS KNOWN. PLEASANT AND COOPERATIVE WITH CARE, LOW MOTIVATION TO GET OUT OF BED WITH STAFF FOR MEALS. DIET CHANGED TO SOFT BITE SIZE PATIENT COMPLAINING OF DIFFICULTY CHEWING FOOD, WHICH IS A CHRONIC ISSUE FOR PATIENT. HAS HX OF 5 ESOPHAGEAL DILATIONS. CLARITIN STARTED PRN FOR PATIENT, LASIX PRN ADMINISTERED FOR BLE EDEMA. PATIETN STARTED ON NEW BLOOD PRESSURE MEDICATION FOR SBP 180s. TELEMETRY IN PLACE, NO EVENTS NOTED THIS SHIFT. WILL CONTINUE TO MONITOR.
[2024-11-30 19:50] VITALS: BP 137/90
[2024-11-30] MEDS ORDERED: Docusate Sodium/Senna 1 Tab PO SCH (21:00)
[2024-12-01] VITALS (7 sets, daily range): BP systolic 116–137; BP diastolic 46–102
--- NOTE | 2024-12-01 06:32 | NUR ---
SHIFT SUMMARY PT SLEPT SHORT INTERVALS DURING THE NIGHT. RIGHT SIDED WEAKNESS CONTINUES UNCHANGED FROM PRIOR NIGHTS. PUREWICK IN PLACE DRAINING CLEAR YELLOW URINE. TELE SHOWING MOSTLY SINUS RHYTHM, BUT CONVERTED TO AFIB X2. PT CURRENTLY IN SR. BED IN LOWEST POSITION, CALL LIGHT WITHIN REACH, SIDERAILS UP X2.
--- NOTE | 2024-12-01 09:04 | NUR ---
PT REPORTING INCREASED WEAKNESS ON THE R SIDE AND DIFFICULTY SPEAKING. SPEECH GARBLED. PT UNABLE TO LIFT R LEG OR WIGGLE TOES. PT BARELY ABLE TO USE R ARM, COMMERCIAL DEVELOPMENT MANAGER MUCH WEAKER. ATHLETIC MONITOR REPORTS SHE CARED FOR PT YESTERDAY AND PT WAS ABLE TO FEED SELF WITH RIGHT HAND AND LIFT R LEG OFF BED. VITALS STABLE. HOSPITALIST DR. CALHOUN UP TO ROOM FOR ASSESSMENTS REPORTS HE WILL CONTACT NEUROLOGY. NO NEW ORDERS AT THIS TIME.
--- NOTE | 2024-12-01 15:35 | NUR ---
The patient has her dtr present but she leaves after I was in the room for only a few minutes. The patietn explains about the set backs in her condition last night and earlier this morning. She talks about how discouraging this is and her main expressed concern is for her as he has a long list of medical issues as well. He arrives in the room after I am in conversaing with the patient for over 1/2 an hour. He briefly tells me about his story and then I provided prayer so that they could have time to visit. They both voice appreciation for the time and encouragment given by spiritual care.
--- NOTE | 2024-12-01 17:29 | NUR ---
SHIFT SUMMARY NO ACUTE CHANGES, A/Ox4, ABLE TO MAKE NEEDS KNOWN AND USES CALL LIGHT APPROPRIATELY. REPEAT CT SCAN COMPLETED TODAY DUE TO INCREASED WEAKNESS ON RIGHT SIDE AND MUMBLED SPEECH - DIFFERENT FROM PT AT START OF SHIFT AND YESTERDAY. SYMPTOMS SUBSIDING SINCE THIS AM - PT REGAINING MOBILITY ON R SIDE AND SPEECH MORE CLEAR. PT DENIES PAIN OR ANY OTHER FORM OF DISTRESS. PUREWICK IN PLACE - CHANGED BY RN DURING SHIFT. PT CURRENTLY SLEEPING IN BED WITH BED IN LOWEST POSITION AND CALL LIGHT WITHIN REACH.
[2024-12-02 04:08] VITALS: BP 133/60
--- NOTE | 2024-12-02 04:43 | NUR ---
PT A&O X4, VS WNL, NEURO CHECKS WITH DEFICIT IN RIGHT EXTREMS WITH NO MOVEMENT IN RLE AT ALL. PT USES CALL SYSTEM APPROPRIATELY. TRANSFERS WITH X1 ASSIST TO BSC. TELE NSR IN 90'S, REMAINS ON SOFT DIET AND MEDS WHOLE. BMX2 NOTED IN PAST 24HRS. PLAN TO SNF TO [facility] POSSIBLY 12/02.
[2024-12-02 07:27] VITALS: BP 146/69
[2024-12-02] MEDS ORDERED: ATOR40TA PO (13:00)
[2024-12-02] MEDS ORDERED: GUAI600T33 PO (13:00)
[2024-12-02] MEDS ORDERED: Prinivil10 MG PO (13:01)
[2024-12-02] MEDS ORDERED: LORA10ER PO (13:01)
--- NOTE | 2024-12-02 14:12 | NUR ---
The patient is sitting on a chair and alert. She tells me that she will d/c to a snf today and that she is excited to get on with PT and gain her strength back but she is also nervous about all the new people and routines. She tells me again (like last [place] visit) that her greatest concern is her and how he is coping with her medical situation and his own medical problems. I listening empathically and provided prayer. The patient showed signs of reduced stress.
--- NOTE | 2024-12-02 17:01 | NUR ---
PATIENT DC'D TO [facility] VIA [facility] TRANSPORT. ATTEMPTED TO CALL REPORT TO [facility] X2 WITH NO ANSWER. DC PACKET SENT WITH INFANTRY SENIOR SERGEANT. BELONGINS SENT WITH FAMILY AND PATIENT. PATIENT DENIES ANY FURTHER QUESTIONS OR CONCERNS.
== END 2024-12-02 17:20 | DRG 65 ==
LOC: ER 19:46 → MEDS 19:47
PROVIDERS: Emergency Medicine; Student in an Organized Health Care Education/Training Program; ADMIT Student in an Organized Health Care Education/Training Program
DX: I63.81 Other cerebral infarction due to occlusion or stenosis of small artery (principal); G81.91 Hemiplegia, unspecified affecting right dominant side; R47.01 Aphasia; E86.0 Dehydration; E87.6 Hypokalemia; R47.81 Slurred speech; I48.0 Paroxysmal atrial fibrillation; E03.9 Hypothyroidism, unspecified; K59.09 Other constipation; R29.705 NIHSS score 5; N18.30 Chronic kidney disease, stage 3 unspecified; E78.00 Pure hypercholesterolemia, unspecified; Z90.89 Acquired absence of other organs; Z90.710 Acquired absence of both cervix and uterus; Z98.890 Other specified postprocedural states; Z98.42 Cataract extraction status, left eye; Z98.41 Cataract extraction status, right eye; Z88.2 Allergy status to sulfonamides; Z88.8 Allergy status to other drugs, medicaments and biological substances; Z88.0 Allergy status to penicillin; Z79.890 Hormone replacement therapy; Z79.899 Other long term (current) drug therapy
CPT/HCPCS: 36415; 70450; 70496; 70498; 70551; 71045; 80053; 80061; 80320; 82140; 82803; 82947; 83036; 83605; 83735; 84100; 84443; 85025; 85379; 85610; 85730; 92507; 92523; 93005; 93010; 93306; 94762; 96365; 96374-59; 96376-59; 97110; 97112; 97162; 97165; 97530; 97535; 99285-25; A9270; G0378; G0480; J3480; J7030; Q9967

== ENCOUNTER 2024-12-08 00:17 | Observation (INO) | payer MEDICARE ==
[~2024-12-08] VITALS: Ht 152.4 cm; Wt 73.8 kg
[~2024-12-08 00:17] MED LIST changes: +AMIODARONE HCL100 M3 PO; +ATOR40TA PO; +GUAI600T33 PO; +JARDIANCE10 MG PO; +LEVSOD25 PO; +LORA10ER PO; +Prinivil10 MG PO
[2024-12-08 01:17] LABS: BASOPHILS ABSOLUTE AUTO 0.05 K/mm3 (0.00-0.23); BASOPHILS PERCENT AUTO 1 % (0-2); EOSINOPHILS ABSOLUTE AUTO 0.22 K/mm3 (0.00-0.68); EOSINOPHILS PERCENT AUTO 4 % (0-6); Hematocrit 35.1 % (33.0-51.0); Hemoglobin 11.5 g/dL (11.5-16.0); IMMATURE GRAN ABSOLUTE AUTO 0.02 K/mm3 (0.00-0.10); IMMATURE GRAN PERCENT AUTO 0 % (0-1); LYMPHOCYTES ABSOLUTE AUTO 1.96 K/mm3 (0.84-5.20); LYMPHOCYTES PERCENT AUTO 31 % (21-46); MONOCYTES ABSOLUTE AUTO 0.56 K/mm3 (0.16-1.47); MONOCYTES PERCENT AUTO 9 % (4-13); Mean Corpuscular HGB Conc 32.8 g/dL (31.5-36.5); Mean Corpuscular Volume 101 fL (80-100); NEUTROPHILS ABSOLUTE AUTO 3.49 K/mm3 (1.96-9.15); NEUTROPHILS PERCENT AUTO 55 % (41-73); NRBC ABSOLUTE 0.00 K/mm3 (0.00-0.02); NRBC Auto 0.0 /100 WBC (0.0-0.2); Platelet Count 203 K/mm3 (150-400); RDW Coefficient Variation 13.2 % (11.7-14.2); RDW Standard Deviation 49.1 fL (35.1-46.3)
[2024-12-08 01:34] LABS: Prothrombin Time Results 13.0 Sec (9.7-11.5)
[2024-12-08 01:52] LABS: Alanine Aminotransfer (ALT/SGP 21.0 U/L (12-78); Albumin, Blood 2.8 g/dL (3.4-5.0); Albumin/Globulin Ratio 1.0 (0.8-1.8); Anion Gap 7.0 mmol/L (3-11); Aspartate Aminotrans (AST/SGOT 22.0 U/L (12-37); Bilirubin, Total 0.3 mg/dL (0.1-1.0); Blood Urea Nitrogen 20.0 mg/dL (8-24); CO2, Blood 22.0 mmol/L (21-32); Calcium, Blood 7.4 mg/dL (8.5-10.1); Chloride, Blood 115.0 mmol/L (98-108); Creatinine, Blood 0.95 mg/dL (0.40-1.00); Globulin, Blood 2.7 g/dL (2.2-4.0); Glucose, Blood 85.0 mg/dL (70-99); Potassium, Blood 3.6 mmol/L (3.5-5.5); Sodium, Blood 140.0 mmol/L (136-145); Thyroid Stimulating Hormone 8.39 uIU/mL (0.360-4.800); Total Protein, Blood 5.5 g/dL (6.4-8.2)
[2024-12-08] MEDS ORDERED: Ondansetron HCl 2 MG / ML 2ML Vial IV PRN (03:40)
[2024-12-08 06:53] LABS: BASOPHILS ABSOLUTE AUTO 0.08 K/mm3 (0.00-0.23); BASOPHILS PERCENT AUTO 1 % (0-2); EOSINOPHILS ABSOLUTE AUTO 0.25 K/mm3 (0.00-0.68); EOSINOPHILS PERCENT AUTO 3 % (0-6); Hematocrit 36.2 % (33.0-51.0); Hemoglobin 12.0 g/dL (11.5-16.0); IMMATURE GRAN ABSOLUTE AUTO 0.01 K/mm3 (0.00-0.10); IMMATURE GRAN PERCENT AUTO 0 % (0-1); LYMPHOCYTES ABSOLUTE AUTO 2.42 K/mm3 (0.84-5.20); LYMPHOCYTES PERCENT AUTO 33 % (21-46); MONOCYTES ABSOLUTE AUTO 0.63 K/mm3 (0.16-1.47); MONOCYTES PERCENT AUTO 9 % (4-13); Mean Corpuscular HGB Conc 33.1 g/dL (31.5-36.5); Mean Corpuscular Volume 101 fL (80-100); NEUTROPHILS ABSOLUTE AUTO 3.97 K/mm3 (1.96-9.15); NEUTROPHILS PERCENT AUTO 54 % (41-73); NRBC ABSOLUTE 0.00 K/mm3 (0.00-0.02); NRBC Auto 0.0 /100 WBC (0.0-0.2); Platelet Count 252 K/mm3 (150-400); RDW Coefficient Variation 13.1 % (11.7-14.2); RDW Standard Deviation 49.0 fL (35.1-46.3)
[2024-12-08 07:11] LABS: Alanine Aminotransfer (ALT/SGP 25.0 U/L (12-78); Albumin, Blood 3.3 g/dL (3.4-5.0); Albumin/Globulin Ratio 1.1 (0.8-1.8); Anion Gap 6.0 mmol/L (3-11); Aspartate Aminotrans (AST/SGOT 26.0 U/L (12-37); Bilirubin, Total 0.6 mg/dL (0.1-1.0); Blood Urea Nitrogen 19.0 mg/dL (8-24); CO2, Blood 26.0 mmol/L (21-32); Calcium, Blood 8.6 mg/dL (8.5-10.1); Chloride, Blood 112.0 mmol/L (98-108); Creatinine, Blood 0.96 mg/dL (0.40-1.00); Globulin, Blood 3.1 g/dL (2.2-4.0); Glucose, Blood 91.0 mg/dL (70-99); Potassium, Blood 4.2 mmol/L (3.5-5.5); Sodium, Blood 140.0 mmol/L (136-145); Total Protein, Blood 6.4 g/dL (6.4-8.2)
[2024-12-08 07:17] LABS: Source, Urine Clean Catch
[2024-12-08 07:30] LABS: Bilirubin, Urine Neg (Neg); Color, Urine Yellow (P-Yellow); Glucose Qualitative, Urine 4+ (Neg); Ketones, Urine Neg (Neg); Leukocyte Esterase, Urine Neg (Neg); Protein, Urine 1+ (Neg); Specific Gravity, Urine 1.020 (1.003-1.022); Urobilinogen, Urine NORM (Normal)
[2024-12-08 15:22] VITALS: BP 165/61
--- NOTE | 2024-12-08 17:47 | NUR ---
PT ADMITTED TO UNIT FOR CVA. R SIDED DEFICITS NOTED. A/Ox4, ABLE TO MAKE NEEDS KNONW. NO SWALLOWING ISSUES. PT DENIES PAIN. ROWLAND CATHETER IN PLACE - PATENT AND DRAINING CLEAR YELLOW URINE. MRI COMPLETED AT APPROX 1740 - AWAITING RESULTS. PT CAME FROM [facility] - RECENTLY DISCHARGED ON 12/02/24 FOR CVA. ADMISSION COMPLETED INCLUDING MED REC. PT WISHES TO BE DNR AT THIS TIME. ORDER UPDATED - POLST FORM NEEDED TO BE SIGNED BY PROVIDER. PT ORIENTED TO ROOM AND CALL SYSTEM. IV PATENT AND SALINE LOCKED.
[2024-12-08 19:38] VITALS: BP 134/57
[2024-12-08 23:18] VITALS: BP 132/52
[2024-12-09 03:15] VITALS: BP 138/60
[2024-12-09 05:51] LABS: BASOPHILS ABSOLUTE AUTO 0.07 K/mm3 (0.00-0.23); BASOPHILS PERCENT AUTO 1 % (0-2); EOSINOPHILS ABSOLUTE AUTO 0.21 K/mm3 (0.00-0.68); EOSINOPHILS PERCENT AUTO 3 % (0-6); Hematocrit 36.0 % (33.0-51.0); Hemoglobin 12.0 g/dL (11.5-16.0); IMMATURE GRAN ABSOLUTE AUTO 0.01 K/mm3 (0.00-0.10); IMMATURE GRAN PERCENT AUTO 0 % (0-1); LYMPHOCYTES ABSOLUTE AUTO 1.72 K/mm3 (0.84-5.20); LYMPHOCYTES PERCENT AUTO 25 % (21-46); MONOCYTES ABSOLUTE AUTO 0.65 K/mm3 (0.16-1.47); MONOCYTES PERCENT AUTO 9 % (4-13); Mean Corpuscular HGB Conc 33.3 g/dL (31.5-36.5); Mean Corpuscular Volume 100 fL (80-100); NEUTROPHILS ABSOLUTE AUTO 4.32 K/mm3 (1.96-9.15); NEUTROPHILS PERCENT AUTO 62 % (41-73); NRBC ABSOLUTE 0.00 K/mm3 (0.00-0.02); NRBC Auto 0.0 /100 WBC (0.0-0.2); Platelet Count 239 K/mm3 (150-400); RDW Coefficient Variation 13.1 % (11.7-14.2); RDW Standard Deviation 48.7 fL (35.1-46.3)
[2024-12-09 06:08] LABS: Alanine Aminotransfer (ALT/SGP 25.0 U/L (12-78); Albumin, Blood 3.4 g/dL (3.4-5.0); Albumin/Globulin Ratio 1.1 (0.8-1.8); Anion Gap 4.0 mmol/L (3-11); Aspartate Aminotrans (AST/SGOT 23.0 U/L (12-37); Bilirubin, Total 0.6 mg/dL (0.1-1.0); Blood Urea Nitrogen 20.0 mg/dL (8-24); CO2, Blood 28.0 mmol/L (21-32); Calcium, Blood 8.9 mg/dL (8.5-10.1); Chloride, Blood 109.0 mmol/L (98-108); Creatinine, Blood 1.01 mg/dL (0.40-1.00); Globulin, Blood 3.2 g/dL (2.2-4.0); Glucose, Blood 87.0 mg/dL (70-99); Potassium, Blood 3.9 mmol/L (3.5-5.5); Sodium, Blood 137.0 mmol/L (136-145); Total Protein, Blood 6.6 g/dL (6.4-8.2)
--- NOTE | 2024-12-09 07:11 | NUR ---
CHANGE OVER SUMMARY VSS. ALERT AND ORIENTED X 4. SPEECH MORE UNDERSTANDABLE. DX: CVA WITH RIGHT SIDE DEFICEIT. NOTE RIGHT SIDE FACIAL DROOP. NEURO CHECKS Q 4HR. FIRST WS 14, NEXT WAS 8, THE 3RD WAS 7. HEART HEALTHY DIET. ROWLAND IN USE. NO BM THIS SHIFT. PLEASANT AFFECT AND COOPERATIVE WITH CARE. HAS BEEN RESTING QUIETLY BETWEEN NEURO CHECKS. RAILS UP X 3, BED IN LOW POSITION AND CALL LIGHT IN REACH FOR SAFETY. DENIES PAIN WHEN ASKED. VOICED FEELING IN ALL 4 EXT. WILL MONITOR
[2024-12-09 07:48] VITALS: BP 146/80
--- NOTE | 2024-12-09 15:46 | NUR ---
Upon receiving a referral for spiritual care, I visited the patient. She is known to this cycle analyst. She tells me about her most recent stroke but then switches the conversation over to Perico, her spouse, and all his medical/emotional needs. She admits that some neighbors and anabaptist friends have checked in on him but her concerns center around an even longer stay at the SNF as she will have more barriers to rehab. She speaks about her Rastafarian maranda and allows for herself to be greatly encouraged by discussion about her maranda and her trust in God. I provided anxiety containment and prayer. The patient responded well and showed signs of reduced stress. I will continue to remain available to the patient and family.
[2024-12-09 15:50] VITALS: BP 163/71
--- NOTE | 2024-12-09 16:58 | NUR ---
SHIFT SUMMARY NO ACUTE CHANGES, A/Ox4, ABLE TO MAKE NEEDS KNOW AND USE CALL SYSTEM APPROPRIATELY. R SIDE REMAINS MOSTLY FLACCID, ABLE TO MOVE RIGHT ARM SLIGHTLY. PT DENIES PAIN. ROWLAND REMOVED - NO URINE OUTPUT SINCE. BLADDER SCAN COMPLETED AND SHOWS 222 ML OF URINE IN BLADDER @ 1700. BM x2 TODAY. PT/OT WORKED WITH PT. APPETITE GOOD. VITALS STABLE. PT CURRENTLY RESTING IN RECLINER WITH CALL LIGHT WITHIN REACH.
[2024-12-09 19:37] VITALS: BP 165/79
--- NOTE | 2024-12-10 03:38 | NUR ---
ACOUSTICAL TILE DRILL PRESS OPERATOR SUMMARY BP ELEVATED, OTHERWISE VSS. ALERT AND ORIENTED. HAD VISITOR LAST EVENING. BOTH WERE CHEERFUL TALKING WITH EACH OTHER. DX CVA WITH RIGHT SIDE DEFICEIT. NOTE ABLE TO MOVE RIGHT HAND AND PART OF RIGHT ARM, IMPROVED FROM 24 HR AGO ASSESSMENT. COOPERATIVE. TOLREATING MEDS WELL, SWALLOWING WELL. NEURO CHECKS DONE ABOUT EVERY 4 HRS - SEE NIH CHECKS IN CHART FOR SCORES/OUTCOMES. OTHERWISE HAS BEEN RESTING QUIETLY WITH FEW INTERRUPTIONS. UP WITH 2 PERSON ASSIST TO COMMODE FOR BM. IN BED, CALL LIGHT IN REACH, RAILS UP X 2 AND BED IN LOW POSITION FOR SAFETY. WILL CONT TO MONITOR
[2024-12-10 04:03] VITALS: BP 110/65
--- NOTE | 2024-12-10 04:26 | NUR ---
VOIDED IN BEDSIDE COMMODE EARLIER. - CATHETER WAS REMOVED ON DAY SHIFT
[2024-12-10 05:41] LABS: BASOPHILS ABSOLUTE AUTO 0.04 K/mm3 (0.00-0.23); BASOPHILS PERCENT AUTO 1 % (0-2); EOSINOPHILS ABSOLUTE AUTO 0.27 K/mm3 (0.00-0.68); EOSINOPHILS PERCENT AUTO 4 % (0-6); Hematocrit 34.1 % (33.0-51.0); Hemoglobin 11.4 g/dL (11.5-16.0); IMMATURE GRAN ABSOLUTE AUTO 0.01 K/mm3 (0.00-0.10); IMMATURE GRAN PERCENT AUTO 0 % (0-1); LYMPHOCYTES ABSOLUTE AUTO 1.88 K/mm3 (0.84-5.20); LYMPHOCYTES PERCENT AUTO 25 % (21-46); MONOCYTES ABSOLUTE AUTO 0.66 K/mm3 (0.16-1.47); MONOCYTES PERCENT AUTO 9 % (4-13); Mean Corpuscular HGB Conc 33.4 g/dL (31.5-36.5); Mean Corpuscular Volume 99 fL (80-100); NEUTROPHILS ABSOLUTE AUTO 4.54 K/mm3 (1.96-9.15); NEUTROPHILS PERCENT AUTO 62 % (41-73); NRBC ABSOLUTE 0.00 K/mm3 (0.00-0.02); NRBC Auto 0.0 /100 WBC (0.0-0.2); Platelet Count 228 K/mm3 (150-400); RDW Coefficient Variation 13.2 % (11.7-14.2); RDW Standard Deviation 48.0 fL (35.1-46.3)
[2024-12-10 06:09] LABS: Alanine Aminotransfer (ALT/SGP 25.0 U/L (12-78); Albumin, Blood 3.1 g/dL (3.4-5.0); Albumin/Globulin Ratio 1.0 (0.8-1.8); Anion Gap 7.0 mmol/L (3-11); Aspartate Aminotrans (AST/SGOT 21.0 U/L (12-37); Bilirubin, Total 0.6 mg/dL (0.1-1.0); Blood Urea Nitrogen 22.0 mg/dL (8-24); CO2, Blood 28.0 mmol/L (21-32); Calcium, Blood 8.5 mg/dL (8.5-10.1); Chloride, Blood 109.0 mmol/L (98-108); Creatinine, Blood 1.1 mg/dL (0.40-1.00); Globulin, Blood 3.1 g/dL (2.2-4.0); Glucose, Blood 95.0 mg/dL (70-99); Potassium, Blood 3.8 mmol/L (3.5-5.5); Sodium, Blood 140.0 mmol/L (136-145); Total Protein, Blood 6.2 g/dL (6.4-8.2)
[2024-12-10 08:28] VITALS: BP 164/76
[2024-12-10] MEDS ORDERED: ELIQUIS5 M2 PO (12:10)
--- NOTE | 2024-12-10 15:37 | NUR ---
DISCHARGE: PT D/C @ 1230 BACK TO [facility] VIA WHEELCHAIR TRANSPORT. REPORT GIVEN TO NURSE AT REHAB. PT ABLE TO MOVE RIGHT LEG PRIOR TO D/C BUT STILL UNABLE TO LIFT RIGHT ARM. EQUAL STRENGTH IN BOTH HANDS BILATERALLY. IV REMOVED W/O COMPLICATIONS. TELE SENT BACK. NO QUESTIONS AT TIME OF D/C. BEDSIDE USED BY PT PRIOR TO D/C.
== END 2024-12-10 13:34 ==
LOC: ER 00:17 → ERHOLD 00:18 → MEDS 00:18
PROVIDERS: Emergency Medicine; ADMIT Student in an Organized Health Care Education/Training Program
DX: I63.81 Other cerebral infarction due to occlusion or stenosis of small artery (principal); G81.91 Hemiplegia, unspecified affecting right dominant side; I48.0 Paroxysmal atrial fibrillation; N18.30 Chronic kidney disease, stage 3 unspecified; E03.9 Hypothyroidism, unspecified; Z79.01 Long term (current) use of anticoagulants; Z79.899 Other long term (current) drug therapy; Z88.0 Allergy status to penicillin; Z88.2 Allergy status to sulfonamides; Z88.8 Allergy status to other drugs, medicaments and biological substances
CPT/HCPCS: 36415; 51702; 70450; 70551; 71045; 80053; 82947; 83735; 84439; 84443; 84481; 84484; 85025; 85610; 85730; 93005; 93010; 97110; 97110-CQ; 97112; 97161; 97165; 97530; 99285-25; A9270; G0378

== ENCOUNTER 2024-12-26 17:25 | Emergency (ER) | payer MEDICARE ==
[~2024-12-26] VITALS: Ht 152.4 cm; Wt 68.0 kg
[~2024-12-26 17:25] MED LIST changes: +ELIQUIS5 M2 PO
[2024-12-26 17:48] LABS: BASOPHILS ABSOLUTE AUTO 0.06 K/mm3 (0.00-0.23); BASOPHILS PERCENT AUTO 1 % (0-2); EOSINOPHILS ABSOLUTE AUTO 0.27 K/mm3 (0.00-0.68); EOSINOPHILS PERCENT AUTO 4 % (0-6); Hematocrit 34.7 % (33.0-51.0); Hemoglobin 11.5 g/dL (11.5-16.0); IMMATURE GRAN ABSOLUTE AUTO 0.01 K/mm3 (0.00-0.10); IMMATURE GRAN PERCENT AUTO 0 % (0-1); LYMPHOCYTES ABSOLUTE AUTO 2.35 K/mm3 (0.84-5.20); LYMPHOCYTES PERCENT AUTO 36 % (21-46); MONOCYTES ABSOLUTE AUTO 0.57 K/mm3 (0.16-1.47); MONOCYTES PERCENT AUTO 9 % (4-13); Mean Corpuscular HGB Conc 33.1 g/dL (31.5-36.5); Mean Corpuscular Volume 102 fL (80-100); NEUTROPHILS ABSOLUTE AUTO 3.25 K/mm3 (1.96-9.15); NEUTROPHILS PERCENT AUTO 50 % (41-73); NRBC ABSOLUTE 0.00 K/mm3 (0.00-0.02); NRBC Auto 0.0 /100 WBC (0.0-0.2); Platelet Count 209 K/mm3 (150-400); RDW Coefficient Variation 13.4 % (11.7-14.2); RDW Standard Deviation 50.4 fL (35.1-46.3)
[2024-12-26 18:03] LABS: Anion Gap 7.0 mmol/L (3-11); Blood Urea Nitrogen 24.0 mg/dL (8-24); CO2, Blood 26.0 mmol/L (21-32); Calcium, Blood 8.4 mg/dL (8.5-10.1); Chloride, Blood 110.0 mmol/L (98-108); Creatinine, Blood 1.1 mg/dL (0.40-1.00); Glucose, Blood 121.0 mg/dL (70-99); Magnesium, Blood 2.1 mg/dL (1.6-2.4); Potassium, Blood 3.4 mmol/L (3.5-5.5); Sodium, Blood 140.0 mmol/L (136-145)
[2024-12-26 19:29] VITALS: BP 134/62
== END 2024-12-26 20:11 | disposition home or self-care (01) ==
LOC: ER 17:25
PROVIDERS: Emergency Medicine
DX: R55 Syncope and collapse (principal); E03.9 Hypothyroidism, unspecified; E78.5 Hyperlipidemia, unspecified; Z86.73 Personal history of transient ischemic attack (TIA), and cerebral infarction without residual deficits; Z79.899 Other long term (current) drug therapy; Z88.0 Allergy status to penicillin; Z88.2 Allergy status to sulfonamides; Z88.8 Allergy status to other drugs, medicaments and biological substances
CPT/HCPCS: 70450; 80048; 83735; 85025; 93005; 93010; 99284-25; A9270

== ENCOUNTER 2025-03-06 15:50 | Emergency (ER) | payer MEDICARE ==
[~2025-03-06] VITALS: Ht 152.4 cm; Wt 68.0 kg
[2025-03-06 16:08] LABS: BASOPHILS ABSOLUTE AUTO 0.06 K/mm3 (0.00-0.23); BASOPHILS PERCENT AUTO 1 % (0-2); EOSINOPHILS ABSOLUTE AUTO 0.24 K/mm3 (0.00-0.68); EOSINOPHILS PERCENT AUTO 4 % (0-6); Hematocrit 33.7 % (33.0-51.0); Hemoglobin 11.2 g/dL (11.5-16.0); IMMATURE GRAN ABSOLUTE AUTO 0.01 K/mm3 (0.00-0.10); IMMATURE GRAN PERCENT AUTO 0 % (0-1); LYMPHOCYTES ABSOLUTE AUTO 2.45 K/mm3 (0.84-5.20); LYMPHOCYTES PERCENT AUTO 42 % (21-46); MONOCYTES ABSOLUTE AUTO 0.57 K/mm3 (0.16-1.47); MONOCYTES PERCENT AUTO 10 % (4-13); Mean Corpuscular HGB Conc 33.2 g/dL (31.5-36.5); Mean Corpuscular Volume 101 fL (80-100); NEUTROPHILS ABSOLUTE AUTO 2.54 K/mm3 (1.96-9.15); NEUTROPHILS PERCENT AUTO 43 % (41-73); NRBC ABSOLUTE 0.00 K/mm3 (0.00-0.02); NRBC Auto 0.0 /100 WBC (0.0-0.2); Platelet Count 199 K/mm3 (150-400); RDW Coefficient Variation 12.9 % (11.7-14.2); RDW Standard Deviation 48.2 fL (35.1-46.3)
[2025-03-06 16:26] LABS: Alanine Aminotransfer (ALT/SGP 19.0 U/L (12-78); Albumin, Blood 3.2 g/dL (3.4-5.0); Albumin/Globulin Ratio 1.1 (0.8-1.8); Anion Gap 6.0 mmol/L (3-11); Aspartate Aminotrans (AST/SGOT 18.0 U/L (12-37); Bilirubin, Total 0.6 mg/dL (0.1-1.0); Blood Urea Nitrogen 19.0 mg/dL (8-24); CO2, Blood 27.0 mmol/L (21-32); Calcium, Blood 8.3 mg/dL (8.5-10.1); Chloride, Blood 109.0 mmol/L (98-108); Creatinine, Blood 1.15 mg/dL (0.40-1.00); Globulin, Blood 2.8 g/dL (2.2-4.0); Glucose, Blood 154.0 mg/dL (70-99); Potassium, Blood 3.4 mmol/L (3.5-5.5); Sodium, Blood 139.0 mmol/L (136-145); Total Protein, Blood 6.0 g/dL (6.4-8.2)
[2025-03-06] MEDS ORDERED: Magnesium Sulf 2 GM/Water 50ML 50 ML IV ONE (17:05)
[2025-03-06 18:30] VITALS: BP 131/66
== END 2025-03-06 19:13 | disposition home or self-care (01) ==
LOC: ER 15:50
PROVIDERS: Emergency Medicine
DX: R55 Syncope and collapse (principal); R94.31 Abnormal electrocardiogram [ECG] [EKG]; Z79.01 Long term (current) use of anticoagulants; E87.6 Hypokalemia; Z88.0 Allergy status to penicillin; Z88.2 Allergy status to sulfonamides; Z79.899 Other long term (current) drug therapy
CPT/HCPCS: 80053; 83605; 84484; 85025; 93005; 93010; 96365; 99284-25; J3475

== ENCOUNTER 2025-05-28 11:58 | Emergency (ER) | payer MEDICARE ==
[~2025-05-28] VITALS: Ht 152.4 cm; Wt 68.0 kg
[2025-05-28 12:25] LABS: BASOPHILS ABSOLUTE AUTO 0.09 K/mm3 (0.00-0.23); BASOPHILS PERCENT AUTO 1 % (0-2); EOSINOPHILS ABSOLUTE AUTO 0.34 K/mm3 (0.00-0.68); EOSINOPHILS PERCENT AUTO 4 % (0-6); Hematocrit 34.2 % (33.0-51.0); Hemoglobin 11.5 g/dL (11.5-16.0); IMMATURE GRAN ABSOLUTE AUTO 0.01 K/mm3 (0.00-0.10); IMMATURE GRAN PERCENT AUTO 0 % (0-1); LYMPHOCYTES ABSOLUTE AUTO 3.75 K/mm3 (0.84-5.20); LYMPHOCYTES PERCENT AUTO 48 % (21-46); MONOCYTES ABSOLUTE AUTO 0.64 K/mm3 (0.16-1.47); MONOCYTES PERCENT AUTO 8 % (4-13); Mean Corpuscular HGB Conc 33.6 g/dL (31.5-36.5); Mean Corpuscular Volume 100 fL (80-100); NEUTROPHILS ABSOLUTE AUTO 3.07 K/mm3 (1.96-9.15); NEUTROPHILS PERCENT AUTO 39 % (41-73); NRBC ABSOLUTE 0.00 K/mm3 (0.00-0.02); NRBC Auto 0.0 /100 WBC (0.0-0.2); Platelet Count 234 K/mm3 (150-400); RDW Coefficient Variation 12.8 % (11.7-14.2); RDW Standard Deviation 46.8 fL (35.1-46.3)
[2025-05-28 12:43] LABS: Alanine Aminotransfer (ALT/SGP 17.0 U/L (12-78); Albumin, Blood 3.3 g/dL (3.4-5.0); Albumin/Globulin Ratio 1.2 (0.8-1.8); Anion Gap 9.0 mmol/L (3-11); Aspartate Aminotrans (AST/SGOT 24.0 U/L (12-37); Bilirubin, Total 0.5 mg/dL (0.1-1.0); Blood Urea Nitrogen 15.0 mg/dL (8-24); CO2, Blood 22.0 mmol/L (21-32); Calcium, Blood 8.4 mg/dL (8.5-10.1); Chloride, Blood 112.0 mmol/L (98-108); Creatinine, Blood 0.91 mg/dL (0.40-1.00); Globulin, Blood 2.8 g/dL (2.2-4.0); Glucose, Blood 106.0 mg/dL (70-99); Potassium, Blood 3.8 mmol/L (3.5-5.5); Sodium, Blood 139.0 mmol/L (136-145); Total Protein, Blood 6.1 g/dL (6.4-8.2)
[2025-05-28] MEDS ORDERED: NS 1,000 ML IV SCH (12:50)
[2025-05-28 13:40] VITALS: BP 118/56
== END 2025-05-28 13:40 | disposition home or self-care (01) ==
LOC: ER 11:58
PROVIDERS: Emergency Medicine
DX: I95.9 Hypotension, unspecified (principal); R55 Syncope and collapse; Z88.0 Allergy status to penicillin; Z88.2 Allergy status to sulfonamides; Z79.899 Other long term (current) drug therapy
CPT/HCPCS: 80053; 85025; 93005; 93010; 96360; 99284-25; J7030